=== PATIENT | female | born 1980 | race Two or more races ===

== ENCOUNTER 2022-09-23 09:07 | Emergency (ER) | payer OTHER ==
[~2022-09-23] VITALS: Ht 160 cm; Wt 72.6 kg
== END 2022-09-23 14:40 | disposition home or self-care (01) ==
LOC: ER 09:07
DX: S93.401A Sprain of unspecified ligament of right ankle, initial encounter (principal); X37.1XXA Tornado, initial encounter; Y93.89 Activity, other specified; Y92.019 Unspecified place in single-family (private) house as the place of occurrence of the external cause